=== PATIENT | male | born 1990 | race Caucasian/White ===

== ENCOUNTER 2018-09-01 19:45 | Emergency (ER) | payer OTHER ==
[~2018-09-01] VITALS: Ht 177.8 cm; Wt 70.3 kg
[2018-09-01 20:22] VITALS: BP 142/60
[2018-09-01] MEDS ORDERED: IBUPROFEN 600 MG TABLET. PO ONE (20:30)
[2018-09-01] MEDS ORDERED: IBUP-1007 PO (20:33)
[2018-09-01] MEDS ORDERED: ORPH100T PO (20:33)
--- NOTE | 2018-09-01 20:33 | PHYS DOC ---
Past Medical History Past Medical History: HIV Past Surgical History: Other Additional Past Surgical Histo: BILATERAL FEET, DENTAL Alcohol Use: None Drug Use: None Adult General Chief Complaint Chief Complaint: RIB PAIN HPI HPI Patient is a 28 year old male who presents with lifting heavy boxes at work yesterday and began having right rib pain with movement and lifting his arm. He rates his pain a 6 out of 10 and states that it is achy and sharp at times. Patient states he took Tylenol last this morning. Review of Systems Review of Systems Constitutional: Denies fever or chills [] Eyes: Denies change in visual acuity, redness, or eye pain [] HENT: Denies nasal congestion or sore throat [] Respiratory: Denies cough or shortness of breath [] Cardiovascular: No additional information not addressed in HPI [] GI: Denies abdominal pain, nausea, vomiting, bloody stools or diarrhea [] : Denies dysuria or hematuria [] Musculoskeletal: Right rib pain with movement. Denies back pain or joint pain [] Integument: Denies rash or skin lesions [] Neurologic: Denies headache, focal weakness or sensory changes [] Endocrine: Denies polyuria or polydipsia [] All other systems were reviewed and found to be within normal limits, except as documented in this note. Current Medications Current Medications Current Medications Medications (Trade) Dose Ordered Sig/Chong Start Time Stop Time Status Last Admin Dose Admin Ibuprofen (Motrin) 600 mg 1X ONCE 09/01/18 20:30 09/01/18 20:42 DC 09/01/18 20:42 600 MG Allergies Allergies Allergies Coded Allergies Type Severity Reaction Last Updated Verified No Known Drug Allergies 09/01/18 No Physical Exam Physical Exam Constitutional: Well developed, well nourished, no acute distress, non-toxic appearance. [] HENT: Normocephalic, atraumatic, bilateral external ears normal, oropharynx moist, no oral exudates, nose normal. [] Eyes: PERRLA, EOMI, conjunctiva normal, no discharge. [] Neck: Normal range of motion, no tenderness, supple, no stridor. [] Cardiovascular:Heart rate regular rhythm, no murmur [] Lungs & Thorax: Bilateral breath sounds clear to auscultation [] Abdomen: Bowel sounds normal, soft, no tenderness, no masses, no pulsatile masses. [] Skin: Warm, dry, no erythema, no rash. [] Back: No tenderness, no CVA tenderness. [] Extremities: Right lower rib tenderness, no cyanosis, no clubbing, ROM intact, no edema. [] Neurologic: Alert and oriented X 3, normal motor function, normal sensory function, no focal deficits noted. [] Psychologic: Affect normal, judgement normal, mood normal. [] Current Patient Data Vital Signs Vital Signs Date Time Temp Pulse Resp B/P (MAP) Pulse Ox O2 Delivery O2 Flow Rate FiO2 09/01/18 20:22 98.7 63 15 142/60 (87) 100 Room Air 98.7 EKG EKG [] Radiology/Procedures Radiology/Procedures [] Course & Med Decision Making Course & Med Decision Making Patient is a 28 year old male who presents with lifting heavy boxes at work yesterday and began having right rib pain with movement and lifting his arm. He rates his pain a 6 out of 10 and states that it is achy and sharp at times. Patient states he took Tylenol last this morning. Oriented. Skin pink warm and dry. Ambulatory with steady gait. Patient has good range of motion in all extremities. There is no bruising, deformity, swelling to the right rib area. Lungs are clear to auscultation all lobes. Afebrile. Patient is given a prescription for ibuprofen and orphenadrine. Patient is given a dose ibuprofen before he leaves. He did drive himself yesterday. Is told to follow-up with his primary care and to try not to lift anything heavy for the next 2-3 days. Dragon Disclaimer Dragon Disclaimer This electronic medical record was generated, in whole or in part, using a voice recognition dictation system. Departure Departure Impression: Primary Impression: Muscle strain Disposition: 01 HOME, SELF-CARE Condition: STABLE Referrals: UNKNOWN PCP NAME (PCP) Patient Instructions: Muscle Strain Additional Instructions: Take medications as prescribed. Use a heating pad to use for pain. Scripts Ibuprofen (IBUPROFEN) 600 Mg Tablet 600 MG PO PRN Q6HRS PRN for INFLAMMATION, #20 TAB Prov: JULITA PIEDRA INTERACTIVE DEVELOPER 09/01/18 Orphenadrine Citrate (ORPHENADRINE CITRATE) 100 Mg Tablet.er 1 TAB PO BID, #20 TAB Prov: JULITA PIEDRA INTERACTIVE DEVELOPER 09/01/18 JULITA PIEDRA APRN Sep 01, 2018 20:33
== END 2018-09-01 20:44 | disposition home or self-care (01) ==
LOC: ER 19:45
DX: S29.011A Strain of muscle and tendon of front wall of thorax, initial encounter (principal); X50.0XXA Overexertion from strenuous movement or load, initial encounter; Y93.89 Activity, other specified; Y92.69 Other specified industrial and construction area as the place of occurrence of the external cause; Y99.0 Civilian activity done for income or pay
CPT/HCPCS: 99283